=== PATIENT | female | born 1995 | race Caucasian/White ===

== ENCOUNTER 2020-05-05 06:14 | Day surgery (SDC) | payer BC, SELFPAY ==
--- NOTE | 2020-05-04 10:41 | NUR ---
Patient called for her COVID-19 laboratory test results. Patient was notify of her "Not Detected" status and instructed to follow the recommended preventive measures ([facility]), patient confirmed verbal understand.
[~2020-05-05] VITALS: Ht 149.9 cm; Wt 59.0 kg
[2020-05-05] MEDS ORDERED: ONDANSETRON HCL 4 MG/2 ML VIAL IVP PRN (07:30)
[2020-05-05] MEDS ORDERED: HYDROmorphone 1 MG INJ. 1 MG/ML AMPUL IVP PRN ×2 (07:30)
[2020-05-05] MEDS ORDERED: MEPERIDINE HCL/PF 25 MG/ML DISP.SYRIN IVP PRN (07:30)
[2020-05-05] MEDS ORDERED: ONDANSETRON HCL 4 MG/2 ML VIAL ONE (09:31)
[2020-05-05] MEDS ORDERED: METHYLERGONOVINE MALEATE 0.2 MG/ML AMP ONE (09:31)
[2020-05-05] MEDS ORDERED: fentaNYL CITRATE/PF 100 MCG/2 ML AMP ONE (09:31)
[2020-05-05] MEDS ORDERED: SEVOFLURANE 15 MIN GAS INH ONE (09:31)
[2020-05-05] MEDS ORDERED: DEXAMETHASONE SOD PHOSPHATE 4 MG/ML VIAL ONE (09:31)
[2020-05-05] MEDS ORDERED: NS IRRIG SOLN 1000 ML IR ONE (09:31)
[2020-05-05] MEDS ORDERED: LR 1,000 ML IV.SOLN IV ONE (09:31)
[2020-05-05 12:22] VITALS: BP_SYST 104
== END 2020-05-05 19:33 | disposition home or self-care (01) ==
LOC: SMU 06:14 → SDS 06:14
PROVIDERS: ATTEND Obstetrics & Gynecology
DX: O02.1 Missed abortion (principal); Z11.59 Encounter for screening for other viral diseases; Z79.899 Other long term (current) drug therapy
CPT/HCPCS: 59820; 88305; J1100; J2210; J2405; J3010; J7120; U0003